=== PATIENT | female | born 1970 | race Caucasian/White ===

== ENCOUNTER → 2016-11-06 10:58 | Emergency (ER) | payer SELFPAY | END | disposition home or self-care (01) | LOC: OHCORT 10:58 | DX: Z02.1 Encounter for pre-employment examination (principal) ==

== ENCOUNTER 2017-06-17 17:10 | Emergency (ER) | payer BC ==
[2017-06-17 17:47] VITALS: BP 133/83
--- NOTE | 2017-06-17 18:14 | UC ---
Respiratory Complaint HPI - HPI Summary HPI Summary: 47 yo female with 10 day history of feverish/runny nose/facial pressure/post nasal drip and cough sore throat no myalgias - History of Current Complaint Chief Complaint: UCRespiratory Stated Complaint: CHEST CONGESTION Time Seen by Provider: 06/17/17 17:49 Hx Obtained From: Patient Hx Last Menstrual Period: 06/04/17 Onset/Duration: Gradual Onset, Lasting Days Timing: Constant Severity Initially: Mild Severity Currently: Moderate Pain Intensity: 5 Pain Scale Used: 0-10 Numeric Character: Cough: Productive Aggravating Factors: Nothing Alleviating Factors: Nothing Associated Signs And Symptoms: Positive: Wheezing, Nasal Congestion, Hoarseness , Sinus Discomfort - Allergies/Home Medications Allergies/Adverse Reactions: Allergies Allergy/AdvReac Type Severity Reaction Status Date / Time Penicillins Allergy Severe Anaphylatic Verified 06/17/17 17:36 Shock latex Allergy Unknown Rash Verified 06/17/17 17:37 Home Medications: Home Medications Ascorbic Acid [C-1000] 06/17/17 [History] Dm/Acetaminophen/Doxylamine [Night Cold-Flu Relief Liq Gel] 1 each PO PRN [History] Fluticasone-Salmeterol 250-50* [Advair Diskus 250-50*] 1 puff INH BID 06/17/17 [ History Confirmed 06/17/17] Ibuprofen TAB* [Advil TAB*] 800 mg PO Q6H PRN 06/17/17 [History Confirmed ] Pseudoephedrine TAB* [Sudafed TAB*] 30 mg PO Q6H PRN 06/17/17 [History Confirmed 06/17/17] guaiFENesin ER TAB [Mucinex*] 600 mg PO BID PRN 06/17/17 [History Confirmed ] PMH/Surg Hx/FS Hx/Imm Hx Previously Healthy: Yes - Surgical History Surgical History: None - Social History Alcohol Use: Occasionally Substance Use Type: None Smoking Status (MU): Light Every Day Tobacco Smoker Type: eCigarettes Review of Systems Constitutional: Fever Skin: Negative Eyes: Negative ENT: Nasal Discharge, Sinus Congestion, Sinus Pain/Tenderness Respiratory: Cough Cardiovascular: Negative Gastrointestinal: Negative Genitourinary: Negative Motor: Negative Neurovascular: Negative Musculoskeletal: Negative Neurological: Negative Psychological: Negative Is Patient Immunocompromised?: No All Other Systems Reviewed And Are Negative: Yes Physical Exam Triage Information Reviewed: Yes Appearance: Well-Appearing, No Pain Distress, Well-Nourished Vital Signs: Initial Vital Signs Temp 98.1 F 06/17/17 17:40 Pulse 95 06/17/17 17:40 Resp 20 06/17/17 17:40 BP 133/83 06/17/17 17:40 Pulse Ox 98 06/17/17 17:40 Vital Signs Reviewed: Yes Eyes: Positive: Conjunctiva Clear ENT: Positive: Normal ENT inspection, Nasal congestion, Nasal drainage, Sinus tenderness Neck: Positive: Supple, Nontender, No Lymphadenopathy Respiratory: Positive: Lungs clear, Normal breath sounds, No respiratory distress, No accessory muscle use Cardiovascular: Positive: RRR, No Murmur Musculoskeletal: Positive: ROM Intact, No Edema Neurological: Positive: Alert Psychological Exam: Normal Skin Exam: Normal UC Diagnostic Evaluation - Laboratory Pertinent Lab Values Are: WNL - nefg influenza O2 Sat by Pulse Oximetry: 98 - normal/not hypoxic Respiratory Course/Dx - Course Course Of Treatment: Reference #: [id number] - Differential Dx/Diagnosis Provider Diagnoses: acute sinusitis Discharge - Sign-Out/Discharge Documenting (check all that apply): Discharge/Admit/Transfer - Discharge Plan Condition: Stable Disposition: HOME Prescriptions: Codeine Phosphate/Guaifenesin [Cheratussin AC Syrup] 10 ml PO Q4H PRN #100 liquid MDD 20 PRN Reason: Cough DOXYcycline CAP(*) [DOXYcycline 100MG CAP(*)] 100 mg PO BID #20 cap Fluticasone NASAL SPRAY 50MCG* [Flonase NASAL SPRAY 50MCG*] 2 spray BOTH NARES BID #1 btl Patient Education Materials: Sinusitis (ED) Referrals: No Primary Care Phys,NOPCP [Primary Care Provider] - Additional Instructions: recheck in [place] week if not better - Billing Disposition and Condition Condition: STABLE Disposition: HOME
== END 2017-06-17 18:24 | disposition home or self-care (01) ==
LOC: UCCORT 17:10
DX: J01.90 Acute sinusitis, unspecified (principal); F17.290 Nicotine dependence, other tobacco product, uncomplicated; Z88.0 Allergy status to penicillin
CPT/HCPCS: 87502; 99212; G0463